=== PATIENT | female | born 1990 ===

== ENCOUNTER 2024-07-04 12:30 | Inpatient (IN) | payer OTHER ==
[~2024-07-04] VITALS: Ht 162.6 cm; Wt 66.7 kg
[2024-07-04 13:47] VITALS: BP 117/73
[2024-07-04 13:52] VITALS: BP 102/70
[2024-07-12 11:01] VITALS: BP 107/73
[2024-07-24] MEDS ORDERED: CEFAZOLIN SODIUM 1,000 MG VIAL ONE (08:07)
[2024-07-24] MEDS ORDERED: PROMETHAZINE HCL 25 MG/ML AMPUL IV SCH (12:07)
[2024-07-24] MEDS ORDERED: MORPHINE SULFATE 4 MG/ML CARTRIDGE IV SCH (12:08)
[2024-07-24] MEDS ORDERED: MORPHINE SULFATE 4 MG/ML VIAL IV ONE ×2 (12:25→13:00)
[2024-07-24] MEDS ORDERED: GABAPENTIN 300 MG CAPSULE PO SCH (13:00)
[2024-07-24 14:18] VITALS: BP 117/73
[2024-07-24 17:41] LABS: BASO % 0.2 % (0.1-1.2); HEMATOCRIT 32.2 % (34.1-44.9); HEMOGLOBIN 10.9 g/dL (11.2-15.7); LYMPH # 0.73 (1.18-3.74); LYMPH % 5.1 % (19.3-53.1); MEAN CORPUSCULAR HEMOGLOBIN 27.9 pg (25.6-32.2); MONO % 4.2 % (4.7-12.5); NEUT # 12.92 (1.56-6.13); NEUT % 90.2 % (34.0-71.1); PLATELET COUNT 314 K/uL (163-369); RED CELL DISTRIBUTION WIDTH 12.9 % (11.6-14.4)
[2024-07-24 20:37] VITALS: BP 119/79
[2024-07-25] VITALS: BP 103/63
[2024-07-25] MEDS ORDERED: IBUprofen 800 MG TABLET PO SCH (02:00)
[2024-07-25 05:00] VITALS: BP 115/68
[2024-07-25] MEDS ORDERED: SIMETHICONE 125 MG CAPSULE PO SCH (05:00)
[2024-07-25 08:00] VITALS: BP 116/73
[2024-07-25] MEDS ORDERED: POLYETHYLENE GLYCOL 3350 17 GM BLIST.PACK PO SCH (09:00)
[2024-07-25 16:23] VITALS: BP 108/73
[2024-07-26] VITALS: BP 95/64
[2024-07-26 05:00] VITALS: BP 116/77
[2024-07-26] MEDS ORDERED: GABAPENTIN300 MG PO (06:56)
[2024-07-26] MEDS ORDERED: IBUPROFEN800 MG PO (06:56)
[2024-07-26] MEDS ORDERED: POLY119PG PO (06:56)
[2024-07-26] MEDS ORDERED: SIMETHICONE125 M1 PO (06:57)
[2024-07-26 08:40] VITALS: BP 95/60
== END 2024-07-26 09:19 | disposition home or self-care (01) | DRG 743 ==
LOC: SURH 07-10 12:30 → O/R 07-24 07:53 → OB/GYN 07-24 10:00
PROVIDERS: ADMIT Obstetrics & Gynecology; ATTEND Obstetrics & Gynecology
PROC: 0UT70ZZ Resection of Bilateral Fallopian Tubes, Open Approach (ICD-10-PCS; 2024-07-24)
PROC: 0UT90ZZ Resection of Uterus, Open Approach (ICD-10-PCS; principal; 2024-07-24 10:00)
DX: D25.1 Intramural leiomyoma of uterus (principal); D25.2 Subserosal leiomyoma of uterus; N72 Inflammatory disease of cervix uteri